=== PATIENT | male | born 1960 | race Caucasian/White ===

== ENCOUNTER 2017-03-24 16:20 | Inpatient (IN) ==
[~2017-03-24 16:20] MED LIST: LIDOCAINE 1%/EPI INJ 20 ML VIAL ONE
[2017-03-24] MEDS ORDERED: ceFAZolin 1,000 MG VIAL ONE (16:46)
--- NOTE | 2017-03-24 16:50 | EKG Report ---
Stationary ECG Study [facility] Test Date: 03/24/2017 4:48:35 PM Pat Name: AYANA COLINDRES Department: Room: 610 Gender: M Operater: [place] : 1960 Requested by: Rashi Goodwin Order Number: [id number] Reading MD: GERMAN LARA Intervals Equality Rate: 69 P: 64 NH: 227 QRS: 116 QRSD: 111 T: 93 QT: 424 QTc: 442 Interpretive Statements SINUS RHYTHM WITH PROLONGED NH INTERVAL MARKED RIGHT AXIS DEVIATION MODERATE INTRAVENTRICULAR CONDUCTION DELAY Electronically Signed On 03-24-17 20:11:29 CDT by GERMAN LARA [email or web address]
[2017-03-24] MEDS ORDERED: SODIUM CHLORIDE 0.9% 250 ML IV SCH (17:00)
[2017-03-24 17:01] LABS: Hematocrit 34.9 VOL% (42.0-52.0); Hemoglobin 12.5 GM/DL (14.0-18.0)
--- NOTE | 2017-03-24 17:59 | History and Physical Update ---
History and Physical Update - History and Physical H&P was reviewed, the patient examined and there: are no changes in the patients condition since last H&P was completed. - Dictation Physical: refer to scanned H&P
--- NOTE | 2017-03-24 18:40 | Operative Note ---
Date of procedure: 03/24/17 Pre-op diagnosis: Multiple soft tissue abscesses Post-op diagnosis: same Procedure: Preoperative diagnosis 1. Left upper abdominal wall necrotizing soft tissue infection with abscess 2. Left axillary abscess 3. Right scalp abscess Postoperative diagnosis Same Procedure performed 1. Incision and drainage of left upper abdominal wall abscess 2. Excisional debridement of necrotic skin and subcutaneous tissue of the left upper abdominal wall measuring 32 cm, wound measuring 8 x 4 cm after debridement 3. Incision and drainage of left axillary abscess 4. Incision and drainage of right scalp abscess Findings Necrotizing soft tissue infection was present with abscess formation of the left upper abdominal wall. Incision and drainage was performed and cultures were sent. The necrotic tissue was debrided with scissors and a total of 32 cm of necrotic skin and subcutaneous tissue were debrided and the postop wound measured 8 x 4 cm. The same purulent drainage was obtained from the left axilla and right scalp. Complications None apparent Specimen Cultures Anesthesia General LMA Blood loss Minimal Indications Multiple soft tissue abscesses Description of procedure The patient was taken to the operating room and transferred to the operating table in the supine position. Pressure points were padded and SCDs were placed to bilateral lower extremities. General laryngeal mask anesthesia was administered. Left upper abdominal wall, left axilla, and right scalp were prepped with Betadine and draped sterilely. Preoperative antibiotics were administered and timeout performed. The left upper abdominal abscess was drained a large amount of pus was obtained. Cultures were sent to the lab from this. An excisional debridement was then performed of the necrotic skin and subcutaneous tissue with scalpel and scissors measuring 8 x 4 cm for a total excisional debridement of 32 cm. The wound was irrigated and packed with a wet -to-dry gauze dressing and covered with ABD and tape. Left axillary abscess was then drained with routine incision and drainage and there is no necrotic tissue present. Purulent drainage was obtained and the wound was irrigated and packed with iodoform packing gauze covered with gauze and tape. The right scalp abscess was then drained in a similar fashion with the same drainage quality. This was packed with out a form packing gauze after was irrigated and covered with gauze and tape. Patient was awakened from anesthesia and transferred to recovery. Postoperative plan Continue antibiotics and wound care Consult nephrology for inpatient dialysis Anesthesia: PATT Surgeon / Physician: Rashi Goodwin Estimated blood loss: minimal Specimens: other (cultures) Condition: stable Disposition: PACU Results - Labs CBC & BMP: 03/24/17 16:50 03/24/17 16:50 Discharge Plan - Discharge Medications No Action Levothyroxine Tab [Synthroid Tab] 137 mcg PO DAILY@0700 Glimepiride [Amaryl] 2 tablet PO BID Aspirin [Ecotrin] 81 mg PO DAILY Amiodarone HCl [Amiodarone HCl] 1 tablet PO DAILY - Follow Up or Referral - Forms/Instructions
--- NOTE | 2017-03-24 18:50 | Anesthesia Post-Op ---
Anesthesia Post OP - Post Ansesthetic Evaluation Patient seen in post op: Yes
[2017-03-24] MEDS ORDERED: SEVOFLURANE 1 UNIT/15 MINUTE INH ONE (18:54)
[2017-03-24] MEDS ORDERED: ePHEDrine 50 MG/ML AMP ONE (18:55)
[2017-03-24] MEDS ORDERED: fentaNYL 100 MCG/2 ML VIAL ONE (18:55)
[2017-03-24] MEDS ORDERED: MIDAZOLAM 2 MG/2 ML VIAL ONE (18:56)
[2017-03-24] MEDS ORDERED: DEXTROSE 50% 25 GM/50 ML SYRINGE IV PRN (19:29)
[2017-03-24] MEDS ORDERED: ONDANSETRON 4 MG/2 ML VIAL IV PRN (19:29)
[2017-03-24] MEDS ORDERED: HYDROmorphone 2 MG/1 ML VIAL IV PRN (19:29)
[2017-03-24] MEDS ORDERED: GLUCAGON 1 MG VIAL IM PRN (19:29)
[2017-03-24] MEDS ORDERED: PROMETHAZINE 25 MG/1 ML VIAL IM PRN (19:29)
[2017-03-24] MEDS: INSULIN REGULAR 100 UNIT/ML SUBCUT SCH (20:59)
[2017-03-24] MEDS: GLIMEPIRIDE 4 MG TABLET PO SCH (20:59)
[2017-03-25] MEDS: CLINDAMYCIN INJ 900 MG in PREMIX 1 EACH IV SCH ×2 (00:28→09:24)
[2017-03-25] MEDS ORDERED: LEVOTHYROXINE 137 MCG TABLET PO SCH (07:00)
[2017-03-25] MEDS ORDERED: ASPIRIN EC 81 MG TABLET PO SCH (09:00)
[2017-03-25] MEDS ORDERED: PANTOPRAZOLE 40 MG TABLET PO SCH (09:00)
[2017-03-25] MEDS ORDERED: AMIODARONE 200 MG TABLET PO SCH (09:00)
[2017-03-25] MEDS: GLIMEPIRIDE 4 MG TABLET PO SCH (09:21)
[2017-03-25] MEDS: INSULIN REGULAR 100 UNIT/ML SUBCUT SCH ×3 (09:29→19:39)
--- NOTE | 2017-03-25 11:44 | Discharge Summary ---
Hospital Course - Hospital Course Hospital Course: 56-year-old white male with history of diabetes, hypertension, and chronic renal failure seen in clinic by Dr. Goodwin with multiple abscesses on his scalp, abdomen, and axilla that were present for 2 weeks. He was admitted on 2016 and taken to the operating room for I&D of left upper abdominal wall abscess, debridement of necrotic skin and subcu tissue of the left upper abdominal wall abscess, I&D of left axillary abscess, and I&D of right scalp abscess. Patient's wounds look ok. His abdominal wound has some slough but hope this will improve with Dakin's. He is afebrile and his white count is normal. Early cultures are growing gram-positive cocci. Patient will be discharged home on clindamycin with a follow-up with Dr. Goodwin in 1 week. Complete discharge instructions were given. Care coordination, chart review, and completed discharge paperwork took approximately 33 minutes. - Time spent with patient Time with patient DS: Greater than 30 minutes Specialty Discharge - Follow Up or Referrals Follow up with: Rashi Goodwin MD [Physician] - 03/30/17 2:00 pm Discharge Plan - Discharge Data Disposition: Disch To Home/Self Care Condition at Discharge: Stable Discharge Diet: diabetic diet Activity: resume usual activities as tolerated Hygiene: may shower Driving: other (No driving if taking pain medications) Contact your physician if you experience:: fever over 101, Redness or swelling Wound / Dressing Care Instructions: Shower all wounds daily with Hibiclens and rinse with water thoroughly, repack all wounds with Dakin's moistened gauze, cover with dry gauze, and paper tape - Discharge Medications New Clindamycin HCl [Clindamycin Cap] 300 mg PO QID #28 capsule HYDROcodone/ACETAMIN 7.5-325 [[place] 7.5-325] 1 tablet PO Q4H PRN #30 tablet PRN Reason: Pain Moderate (4-7) Continue Levothyroxine Tab [Synthroid Tab] 137 mcg PO DAILY@0700 Glimepiride [Amaryl] 2 tablet PO BID Aspirin [Ecotrin] 81 mg PO DAILY Amiodarone HCl 1 tablet PO DAILY - Follow Up or Referral Follow Up: Rashi Goodwin MD [Physician] - 03/30/17 2:00 pm - Forms/Instructions Exam - Constitutional Vitals: Period Temp Pulse Resp BP Sys/Quinones Pulse Ox Last 24 Hr 97 F-99.4 F 59-70 16-20 105-142/48-78 90-100 Discharge Results Procedures and tests throughout hospitalization: Pending Orders 03/24/17 Abscess Culture Routine Anaerobic Culture Routine Labs on day of discharge: Labs from last 24 hours 03/25/17 03/25/17 03/24/17 10:45 06:42 21:43 Hgb Hct Potassium POC Glucose 202 H 142 H 140 H 03/24/17 03/24/17 03/24/17 18:31 16:51 16:50 Hgb Hct Potassium 4.8 POC Glucose 104 102 03/24/17 16:50 Hgb 12.5 L Hct 34.9 L Potassium POC Glucose Preliminary micro results at discharge 03/24/17 Unknown Abscess Culture - Preliminary Abdomen - Abscess Gram Positive Cocci DS: Provider Date of admission: 03/24/17 Attending physician on admission: dominick Consults: 03/24/17 19:29 Consult to Physician [CONS] Routine Comment: Consulting Provider: Gordon Sanderson When should Consulting Provider be notified: Now Person Notified: adriana wilkinson Date Notified: 03/25/17 Time Notified: 08:43 Discharging clinician: DIAZ White Expected date of discharge: 03/25/17
[2017-03-25] MEDS ORDERED: CHLORHEXIDINE 4% SOLN 118 ML BOTTLE TOP SCH (12:30)
[2017-03-25] MEDS ORDERED: SODIUM HYPOCHLORITE 0.25% IRRIG 473 ML BOTTLE TOP SCH (12:30)
[2017-03-25 19:29] VITALS: BP 150/81
--- NOTE | 2017-03-25 21:42 | Nephrology Consult Note ---
History of Present Illness Chief complaint: ESRD History of present illness: Mr. Martin is a 56 year old male with ESRD secondary to diabetes. He was seen at the dialysis unit yesterday at which time he complained of pain in his left side. Examination revealed a large indurated area involving the left upper abdomen. He was referred to Dr. Goodwin and taken to surgery for drainage of this abscess as well as one in the left axilla and a smaller one on his scalp. He tolerated the procedure without complications. Home Medications Medication Instructions Recorded Confirmed Type Amiodarone HCl 1 tablet PO DAILY 12/19/15 03/24/17 History Aspirin [Ecotrin] 81 mg PO DAILY 12/19/15 03/24/17 History Glimepiride [Amaryl] 2 tablet PO BID 12/19/15 03/24/17 History Levothyroxine Tab [Synthroid Tab] 137 mcg PO DAILY@0700 12/19/15 03/24/17 History Clindamycin HCl [Clindamycin Cap] 300 mg PO QID #28 capsule 03/25/17 Rx HYDROcodone/ACETAMIN 7.5-325 1 tablet PO Q4H PRN #30 tablet 03/25/17 Rx [[place] 7.5-325] Allergies Allergy/AdvReac Type Severity Reaction Status Date / Time No Known Allergies Allergy Verified 03/24/17 16:38 Medical,Surgical,& Family Hx - Medical History Cardio: History of: Cardiac Dysrhythmia (AFIB), Hypertension Neurology: No history of: Seizures Endocrine: History of: Diabetes Mellitus (NIDDM), Thyroid Disorder ( hypothyroidism) Renal: History of: Dialysis ([id number]), Renal Failure Musculoskeletal: History of: Musculoskeletal Problems (arthritis of knees) - Social History Smoking Status: Never smoker Frequency of Alcohol Use: None Type of Drug Use: None Review of Systems 12 point system: reviewed and no additional remarkable complaints except as stated Exam - Vital Signs Vital signs: Period Temp Pulse Resp BP Sys/Quinones Pulse Ox Last 24 Hr 97.1 F-98.0 F 59-69 16-20 105-150/48-81 90-100 Exam: Gen.: Alert and oriented x3. ENT: Pupils equal round reactive to light. EOMs intact. Mucous membranes moist. Neck: Supple. No JVD or bruit. Cardiovascular: Regular rate and rhythm. No murmur rub or gallop Lungs: Clear Abdomen: Soft. Surgical dressing over left upper quadrant wound. Extremities: No edema Results - Labs CBC & BMP: 03/24/17 16:50 03/24/17 16:50 Assessment and Plan (1) ESRD (end stage renal disease) Status: Acute Assessment and plan: 56-year-old man admitted with: * ESRD. He dialyzed yesterday. Volume status is normal. Plan dialysis tomorrow * Abdominal wall abscess. Status post incision and drainage. Continue current antibiotics. Cultures pending * Left axillary abscess * Diabetes mellitus (2) Abdominal wall abscess Status: Acute (3) Abscess of left axilla Status: Acute (4) Diabetes mellitus Status: Acute Specialty Discharge - Follow Up or Referrals Follow up with: Rashi Goodwin MD [Physician] - 03/30/17 2:00 pm
== END 2017-03-25 19:05 | disposition home health service (06) | DRG 570 ==
LOC: N.OR 16:20 → N.SDSINP 16:28 → N.3E 18:18
PROVIDERS: ADMIT Surgery; ATTEND Surgery

== ENCOUNTER 2017-04-01 06:28 | Inpatient (IN) ==
[2017-04-01] MEDS ORDERED: ACETAMINOPHEN 325 MG TABLET PO PRN (07:33)
[2017-04-01] MEDS ORDERED: ONDANSETRON 4 MG/2 ML VIAL IV PRN (07:33)
[2017-04-01] MEDS ORDERED: GLUCAGON 1 MG VIAL IM PRN (07:33)
[2017-04-01] MEDS ORDERED: DEXTROSE 50% 25 GM/50 ML SYRINGE IV PRN (07:33)
[2017-04-01] MEDS: INSULIN REGULAR 100 UNIT/ML SUBCUT SCH ×4 (07:54→22:11)
[2017-04-01 08:52] LABS: Basophils % 0.4 % (0.0-0.8); Eosinophils # 0.4 10*3/uL (0.0-0.87); Eosinophils % 3.6 % (0.00-10.9); Hematocrit 35.9 VOL% (42.0-52.0); Hemoglobin 12.3 GM/DL (14.0-18.0); Immature Granulocytes % 0.7 %; Immature Granulocytes Absolute 0.07 #; Lymphocytes # 0.5 10*3/uL (1.4-4.0); Lymphocytes % 4.8 % (21.2-54.2); Mean Corpuscular HGB Conc 34.3 GM/DL (32-36); Mean Corpuscular Hemoglobin 29 PG (27-34); Mean Corpuscular Volume 85.1 FL (87-102); Monocytes # 0.7 10*3/uL (0.11-0.8); Monocytes % 6.5 % (1.7-12.7); Neutrophils # 8.7 10*3/uL (1.4-7.4); Platelet Count 267 T/CUMM (130-400); Red Blood Count 4.22 MC/CUMM (3.8-5.5); Red Cell Distribution Width 16.1 % (9.3-17.3); White Blood Count 10.3 T/CUMM (4-12)
--- NOTE | 2017-04-01 08:57 | General Surg History&Physical ---
Assessment and Plan (1) Peripheral arterial disease Status: Acute Assessment and plan: This patient definitely has peripheral arterial disease based on his vascular exam. He has palpable pulses in his bilateral femoral arteries but no palpable pulse in his popliteal or pedal arteries. There is Doppler signal down into the foot but I am concerned about the severity of his underlying vascular disease. As mentioned in the history of present illness on this note, I have recommended a vascular workup to the patient so that we can look at options of revascularization given his evidence of peripheral arterial disease and the significance of it. I believe there is a real risk of amputation in the near future if revascularization is not achieved. The patient is adamant that he does not want to have this done. He is not willing to undergo the CT angiogram , noninvasive studies, or any sort of intervention to improve blood flow to his foot. He feels certain that his circulation problems are not bad enough to warrant any of these interventions and thinks that the only reason he is having any problems right now is because of the SCDs that were placed overnight last week. I tried to explain to the patient at length that although the SCDs may have made some symptoms more noticeable, that the SCDs themselves did not cause the chronic changes that we are facing right now and in this light I tried to demonstrate to him the benefit of revascularization in his situation. The patient seems to understand this but he disagrees with me about what is going on and is refusing this treatment. He does have cellulitis but it looks fairly minimal and most of his redness I think is dependent rubor. We will treat him with empiric antibiotics using vancomycin and Zosyn and dose these renally and monitor the cellulitis with wound care to the lower extremities in the meantime. Current Visit: Yes (2) Abdominal wall abscess Status: Acute Assessment and plan: We will continue local wound care to the abscesses that were drained last week. They are all healing well. Current Visit: No History of Present Illness Chief complaint: Bilateral lower extremity swelling History of present illness: Mr. Martin is a 56 year old male who recently had an incision and drainage of multiple abscesses in the soft tissues of the left upper abdomen, left axilla, and right scalp region. I saw him in clinic on Tuesday of this week and he was complaining of some cramping pain in his legs since he left the hospital last week and some swelling. Initially when I saw him there is a lot of dependent rubor and it looked like chronic vascular disease changes but I did not examine his legs at a prior visit and I felt like it would be better to admit him to the hospital for IV antibiotics and monitor for resolution of cellulitis that looks like it has developed on top of his dependent rubor. He does have some wounds on his legs that appear chronic to me. When I called him on Tuesday night to recommend a direct admission the patient refused stating that he had too much to do at home to come in that night. He said he was willing to come in this morning for IV antibiotics and I put in some orders to admit him to the hospital. I have discussed the issue of the patient's underlying peripheral arterial disease based on his pulse exam. He seems convinced that this was all caused by the SCD pumps that he wore overnight in the hospital last week but I tried to explain to him that although the SCDs could have caused some new symptoms that he had not noticed before, he does have severe peripheral arterial disease with diminished pulses and changes in his foot of chronic vascular insufficiency. I have discussed this with the patient and offered to work this up to prevent progression of disease and major amputation in the future. The patient refused to have any of these workups done. I spent a prolonged amount of time in the room discussing this with the patient and tried to tell him that although I agree that he may have noticed new symptoms after the SCD pumps were placed, that he does indeed have severe underlying peripheral arterial disease and that we could potentially help him was attempts at revascularization. I explained to the patient the risk of amputation without revascularization and he is adamant that he does not want to have anything done. He seems to understand the possible outcomes and I think he is demonstrating capacity to make decisions of informed consent an informed refusal. We will do the best that we can that he will allow us to do which will include IV antibiotics and wound care on his legs and also on his abscess drainage sites on the left abdomen, left axilla, and right scalp. Home Medications Medication Instructions Recorded Confirmed Type Amiodarone HCl 1 tablet PO DAILY 12/19/15 03/24/17 History Aspirin [Ecotrin] 81 mg PO DAILY 12/19/15 03/24/17 History Glimepiride [Amaryl] 2 tablet PO BID 12/19/15 03/24/17 History Levothyroxine Tab [Synthroid Tab] 137 mcg PO DAILY@0700 12/19/15 03/24/17 History Clindamycin HCl [Clindamycin Cap] 300 mg PO QID #28 capsule 03/25/17 Rx HYDROcodone/ACETAMIN 7.5-325 1 tablet PO Q4H PRN #30 tablet 03/25/17 Rx [[place] 7.5-325] Allergies Allergy/AdvReac Type Severity Reaction Status Date / Time No Known Allergies Allergy Verified 03/24/17 16:38 Medical,Surgical,& Family Hx - Medical History Cardio: History of: Cardiac Dysrhythmia (AFIB), Hypertension Neurology: No history of: Seizures Endocrine: History of: Diabetes Mellitus (NIDDM), Thyroid Disorder ( hypothyroidism) Renal: History of: Dialysis ([id number]), Renal Failure Musculoskeletal: History of: Musculoskeletal Problems (arthritis of knees) - Surgical History HEENT Surgeries: Surgical HX of: Eye Surgery (Theodore Cataracts and Retina surgery) , Tonsilectomy & Adenoidectomy - Family History Family History: Reports;: Family Cancer (Mother), Family Diabetes (Father), Family Hypertension (Father) - Social History Smoking Status: Never smoker Frequency of Alcohol Use: None Type of Drug Use: None Exam - Constitutional Vitals: Period Temp Pulse Resp BP Sys/Quinones Pulse Ox Last 24 Hr 97.6 F 65 18 129/65 98 General appearance: no acute distress, over weight - Head Head exam: Present: normal inspection, normocephalic - Eye Eye exam: Present: EOMI. Absent: scleral icterus Pupils: Present: [place] - ENT ENT exam: Present: normal exam Mouth exam: Present: normal external inspection, normal voice - Neck Neck exam: Present: normal inspection, trachea midline - Respiratory Respiratory exam: Present: clear to auscultation bilaterally. Absent: accessory muscle use, chest wall tenderness - Cardiovascular Cardiovascular exam: Present: RRR. Absent: systolic murmur, tachycardia - GI/Abdominal GI/Abdominal exam: Present: soft. Absent: tenderness, rebound - Extremities Exam Extremities exam: Present: other (There are changes of chronic peripheral arterial disease in the bilateral lower extremities. He has shiny hairless feet with dependent rubor present but there is also some erythema around some of the wounds on his left leg and he does have edema of the bilateral lower extremities as well. The leg is not warm to the touch. There is no drainage or foul odor from the wounds. There is a chronic appearing eschar on the left medial lower leg that does not appear infected. This has chronic features and does not appear to be caused by SCD pumps a week ago.) - Back Exam Back exam: Present: normal inspection - Neurological Exam Neurological exam: Present: alert, oriented X3 Speech: Present: normal - Skin Skin exam: Present: normal color, other (The abscess cavity in the left upper abdomen, left axilla, and right scalp appear clean and healing well. No surrounding erythema or drainage.) - Constitutional Constitutional: Present: as per HPI - EENT Nose, mouth and throat: Present: as per HPI - Cardiovascular Cardiovascular: Present: as per HPI - Respiratory Respiratory: Present: as per HPI - Gastrointestinal Gastrointestinal: Present: as per HPI - Genitourinary Genitourinary: Present: as per HPI - Musculoskeletal Musculoskeletal: Present: as per HPI - Neurological Neurological: Present: as per HPI - Endocrine Endocrine: Present: as per HPI Hematologic/Lymphatic: Present: as per HPI Quality Measures - VTE Contraindication to Pharmacological VTE Prophylaxis: High Risk of Bleeding Contraindication to Mechanical VTE Prophylaxis: Ischemic Vascular Disease Results - Labs CBC & BMP: 04/01/17 08:25
[2017-04-01 09:18] LABS: Calcium 8.7 MG/DL (8.5-10.1); Osmolality,Calculated 273.2 MOS/KG (273-304); Potassium 4.8 MMOL/L (3.5-5.1)
[2017-04-01 09:35] LABS: Eosinophils 2 % (0-10); Giant Platelets Few; Hypochromasia 1+; Lymphocytes 1 % (20-55); Platelet Estimate Adequate; Segmented Neutrophils 88 % (50-85); Total Cells Counted 100
[2017-04-01] MEDS: LEVOTHYROXINE 137 MCG TABLET PO SCH (09:39)
[2017-04-01] MEDS: AMIODARONE 200 MG TABLET PO SCH (09:39)
[2017-04-01] MEDS: SODIUM HYPOCHLORITE 0.25% IRRIG 473 ML BOTTLE TOP SCH ×2 (09:39→22:11)
[2017-04-01] MEDS: ASPIRIN EC 81 MG TABLET PO SCH (09:39)
[2017-04-01] MEDS: PANTOPRAZOLE 40 MG TABLET PO SCH (09:39)
[2017-04-01] MEDS ORDERED: VANCOMYCIN INJ 1,500 MG in SODIUM CHLORIDE 0.9% 500 ML IV ONE (11:30)
--- NOTE | 2017-04-01 11:38 | Nephrology Consult Note ---
History of Present Illness Chief complaint: ESRD History of present illness: Mr. Martin is a 56 year old male admitted for peripheral vascular disease and cellulitis of the lower extremities. He has long-standing diabetes and peripheral neuropathy. He was recently hospitalized with abdominal wall abscesses. He has been afebrile. He has ESRD secondary to diabetes. He last dialyzed yesterday. He has asked to have his dry weight decreased Home Medications Medication Instructions Recorded Confirmed Type Amiodarone HCl 1 tablet PO DAILY 12/19/15 04/01/17 History Aspirin [Ecotrin] 81 mg PO DAILY 12/19/15 04/01/17 History Glimepiride [Amaryl] 2 tablet PO BID 12/19/15 04/01/17 History Levothyroxine Tab [Synthroid Tab] 137 mcg PO DAILY@0700 12/19/15 04/01/17 History Clindamycin HCl [Clindamycin Cap] 300 mg PO QID #28 capsule 03/25/17 04/01/17 Rx HYDROcodone/ACETAMIN 7.5-325 1 tablet PO Q4H PRN #30 tablet 03/25/17 04/01/17 Rx [[place] 7.5-325] Allergies Allergy/AdvReac Type Severity Reaction Status Date / Time No Known Allergies Allergy Verified 03/24/17 16:38 Medical,Surgical,& Family Hx - Medical History Cardio: History of: Cardiac Dysrhythmia (AFIB), Hypertension Neurology: No history of: Seizures Endocrine: History of: Diabetes Mellitus (NIDDM), Thyroid Disorder ( hypothyroidism) Renal: History of: Dialysis ([facility]), Renal Failure Musculoskeletal: History of: Musculoskeletal Problems (arthritis of knees) - Surgical History HEENT Surgeries: Surgical HX of: Eye Surgery (Theodore Cataracts and Retina surgery) , Tonsilectomy & Adenoidectomy - Family History Family History: Reports;: Family Cancer (Mother), Family Diabetes (Father), Family Hypertension (Father) - Social History Smoking Status: Never smoker Frequency of Alcohol Use: None Type of Drug Use: None Review of Systems 12 point system: reviewed and no additional remarkable complaints except as stated Exam - Vital Signs Vital signs: Period Temp Pulse Resp BP Sys/Quinones Pulse Ox Last 24 Hr 97.6 F 65 18 129/65 98 Exam: Gen.: Alert and oriented x3. ENT: Pupils equal round reactive to light. EOMs intact. Mucous membranes moist. Neck: Supple. No JVD or bruit. Cardiovascular: Regular rate and rhythm. No murmur rub or gallop Lungs: Clear. Abdomen: Soft. Nontender. Left abdominal wall has surgical dressing applied Extremities: 1+ edema. Chronic skin changes consistent with PAD Results - Labs CBC & BMP: 04/01/17 08:25 04/01/17 08:25 Assessment and Plan (1) ESRD (end stage renal disease) Status: Acute Assessment and plan: 56-year-old man with: * ESRD. Dialysis TTS. Dry weight will be decreased to 91 kg * peripheral artery disease. He has declined arteriogram. * Cellulitis, lower extremities. These wounds appear chronic. Vancomycin dose will be adjusted for renal failure * Diabetes mellitus Current Visit: No (2) Peripheral arterial disease Status: Acute Current Visit: Yes (3) Abdominal wall abscess Status: Acute Current Visit: No (4) Abscess of left axilla Status: Acute Current Visit: No (5) Diabetes mellitus Status: Acute Current Visit: No
[2017-04-01] MEDS: PIPERACILLIN/TAZOBACTAM 3,375 MG in SODIUM CHLORIDE 0.9% 100 ML IV SCH (17:54)
[2017-04-02] MEDS: PIPERACILLIN/TAZOBACTAM 3,375 MG in SODIUM CHLORIDE 0.9% 100 ML IV SCH ×2 (04:22→17:38)
[2017-04-02] MEDS: SODIUM HYPOCHLORITE 0.25% IRRIG 473 ML BOTTLE TOP SCH ×3 (04:24→21:26)
[2017-04-02] MEDS: LEVOTHYROXINE 137 MCG TABLET PO SCH (06:50)
[2017-04-02] MEDS ORDERED: VANCOMYCIN INJ 1,250 MG in SODIUM CHLORIDE 0.9% 250 ML IV PRN (06:51)
[2017-04-02] MEDS: INSULIN REGULAR 100 UNIT/ML SUBCUT SCH ×4 (08:01→21:26)
--- NOTE | 2017-04-02 09:22 | General Surgery Progress Note ---
Assessment and Plan - Time spent with patient Time spent with patient: Less than 30 minutes (1) Peripheral arterial disease Status: Acute Assessment and plan: The patient has explained that he will be leaving in the morning because he has personal things that he needs to take care of. He is getting IV antibiotics for lower extremity cellulitis. This appears to be a component of ischemia as well. The patient is not planning to stay for any vascular workup. Apparently he refused the noninvasive vascular studies yesterday according to the nurses. I had a long discussion with the patient explaining that he probably has an underlying problem that is causing the changes in his lower extremity. He says he does not believe this and feels that it is all related to sequential compression devices placed on his legs before. I explained that whether the sequential compression devices had anything to do with it or not he still probably needs a vascular evaluation. He is agreed to follow-up as an outpatient but says that he will be leaving in the morning. We will make sure that nephrology arranges for him to continue to get antibiotics as an outpatient. Current Visit: Yes Subjective Patient reports: Present: feels better. Absent: still having pain, fever Exam - Constitutional Vitals: Period Temp Pulse Resp BP Sys/Quinones Pulse Ox Last 24 Hr 96.5 F-97.4 F 56-68 18-18 123-150/73-94 96-100 General appearance: no acute distress - Eye Eye exam: Absent: scleral icterus - Respiratory Respiratory exam: Absent: accessory muscle use - Extremities Exam Extremities exam: Present: other (He has clean eschars on his left lower extremity without evidence of purulence or active infection. There is diffuse erythema of his lower extremities from the mid calf to the ankle. It is nontender.). Absent: edema Results - Labs CBC & BMP: 04/01/17 08:25 04/01/17 08:25 Lab Results: I have reviewed the past 24 hour labs Quality Measures - VTE Contraindication to Pharmacological VTE Prophylaxis: High Risk of Bleeding Contraindication to Mechanical VTE Prophylaxis: Ischemic Vascular Disease
--- NOTE | 2017-04-02 11:47 | Nephrology Progress Note ---
Nephrology - PN: Subj Interval history: Patient denies shortness of breath. Review of systems GI denies nausea or vomiting Assessment/plan 1. End-stage renal disease-we will plan on hemodialysis today 2. Diabetes mellitus 3. Peripheral vascular disease 4. Anemia-patient's hematocrits around 35% Exam (PN)-Nephrology - Vital Signs Vital signs: Period Temp Pulse Resp BP Sys/Quinones Pulse Ox Last 24 Hr 96.5 F-97.2 F 56-68 18-18 123-147/73-80 96-100 - Lab 04/01/17 08:25 04/01/17 08:25 Most recent lab results Calcium 8.7 MG/DL (8.5-10.1) 04/01/17 08:25
--- NOTE | 2017-04-02 14:37 | Dialysis Note ---
Dialysis Note - Dialysis Note Patient seen on hemodialysis, he is tolerating this well will continue his treatment unchanged, his UF goal is 3 KGs, his systolic blood pressures around 160.
[2017-04-02] MEDS: ASPIRIN EC 81 MG TABLET PO SCH (17:35)
[2017-04-02] MEDS: AMIODARONE 200 MG TABLET PO SCH (17:36)
[2017-04-02] MEDS: PANTOPRAZOLE 40 MG TABLET PO SCH (17:36)
[2017-04-03] MEDS: PIPERACILLIN/TAZOBACTAM 3,375 MG in SODIUM CHLORIDE 0.9% 100 ML IV SCH (04:35)
[2017-04-03] MEDS: LEVOTHYROXINE 137 MCG TABLET PO SCH (06:04)
[2017-04-03] MEDS: INSULIN REGULAR 100 UNIT/ML SUBCUT SCH ×2 (07:55→12:57)
[2017-04-03] MEDS: PANTOPRAZOLE 40 MG TABLET PO SCH (10:04)
[2017-04-03] MEDS: AMIODARONE 200 MG TABLET PO SCH (10:04)
[2017-04-03] MEDS: ASPIRIN EC 81 MG TABLET PO SCH (10:04)
[2017-04-03] MEDS: SODIUM HYPOCHLORITE 0.25% IRRIG 473 ML BOTTLE TOP SCH (10:05)
--- NOTE | 2017-04-03 10:31 | General Surgery Progress Note ---
Assessment and Plan (1) Peripheral arterial disease Status: Acute Assessment and plan: The patient has explained that he will be leaving in the morning because he has personal things that he needs to take care of. He is getting IV antibiotics for lower extremity cellulitis. This appears to be a component of ischemia as well. The patient is not planning to stay for any vascular workup. Apparently he refused the noninvasive vascular studies yesterday according to the nurses. I had a long discussion with the patient explaining that he probably has an underlying problem that is causing the changes in his lower extremity. He says he does not believe this and feels that it is all related to sequential compression devices placed on his legs before. I explained that whether the sequential compression devices had anything to do with it or not he still probably needs a vascular evaluation. He is agreed to follow-up as an outpatient but says that he will be leaving in the morning. We will make sure that nephrology arranges for him to continue to get antibiotics as an outpatient. 04/03: The patient denies pain and wants to go home today. He states that he is leaving no matter what. He is not wanting to stay for a peripheral vascular disease evaluation. He appears to have responded to antibiotics and he can continue to get this on dialysis. We can have him follow-up with Dr. Dawkins in our office. Current Visit: Yes Subjective Patient reports: Present: feels better. Absent: still having pain, fever Exam - Constitutional Vitals: Period Temp Pulse Resp BP Sys/Quinones Pulse Ox Last 24 Hr 97.4 F-98.1 F 57-73 18-20 124-161/62-86 92-97 General appearance: no acute distress - Head Head exam: Present: normocephalic - Eye Eye exam: Absent: scleral icterus - Respiratory Respiratory exam: Absent: accessory muscle use - Extremities Exam Extremities exam: Present: other (He has less erythema). Absent: calf tenderness, edema Results - Labs CBC & BMP: 04/01/17 08:25 04/01/17 08:25 Quality Measures - VTE Contraindication to Pharmacological VTE Prophylaxis: High Risk of Bleeding Contraindication to Mechanical VTE Prophylaxis: Ischemic Vascular Disease
--- NOTE | 2017-04-03 10:33 | Discharge Summary ---
Hospital Course - Hospital Course Hospital Course: The patient was admitted with cellulitis and peripheral vascular disease. The patient refused workup for his peripheral vascular disease including noninvasive vascular studies. He insisted on going home before this could be completed. His cellulitis was treated with antibiotics and it appeared to be responding to antibiotics. The patient needs to go home today and agrees that he is willing to follow-up in our office. - Time spent with patient Time with patient DS: Less than 30 minutes Diagnosis - Discharge Diagnosis (1) Peripheral arterial disease Status: Acute Discharge Plan - Discharge Data Disposition: Disch To Home/Self Care Discharge Diet: advance to your usual diet Activity: resume usual activities as tolerated - Discharge Medications No Action Levothyroxine Tab [Synthroid Tab] 137 mcg PO DAILY@0700 Glimepiride [Amaryl] 2 tablet PO BID Aspirin [Ecotrin] 81 mg PO DAILY Amiodarone HCl 1 tablet PO DAILY Clindamycin HCl [Clindamycin Cap] 300 mg PO QID #28 capsule HYDROcodone/ACETAMIN 7.5-325 [[place]erson 7.5-325] 1 tablet PO Q4H PRN #30 tablet PRN Reason: Pain Moderate (4-7) - Follow Up or Referral Follow Up: Rashi Goodwin MD [Physician] - 1 Week - Forms/Instructions Additional Discharge Instructions: Arrange for him to continue IV antibiotics on dialysis Exam - Constitutional Vitals: Period Temp Pulse Resp BP Sys/Quinones Pulse Ox Last 24 Hr 97.4 F-98.1 F 57-73 18-20 124-161/62-86 92-97 Discharge Results Labs on day of discharge: Labs from last 24 hours 04/03/17 04/02/17 07:23 17:28 POC Glucose 141 H 162 H DS: Provider Date of admission: 04/01/17 06:28 Primary care physician: . No PCP Attending physician on admission: Rashi Goodwin MD Consults: 04/01/17 07:33 Consult to Pharmacy [CONS] Routine Reason for Pharmacy Consult: Dose/Manage Antibiotics Consult to Physician [CONS] Routine Comment: hemodialysis Consulting Provider: Gordon Sanderson Consulting Provider Notified: Yes When should Consulting Provider be notified: Now Person Notified: adriana jaja Date Notified: 04/01/17 Time Notified: 08:35 04/01/17 07:49 Consult to Dietitian [CONS] Routine Reason for Dietitian: Dietary Consult 04/01/17 10:05 Consult to Pharmacy [CONS] Routine Reason for Pharmacy Consult: Dose/Manage Vancomycin Adjust Meds Renal Funct Discharging clinician: Dung Grossman III.,
--- NOTE | 2017-04-03 10:41 | Nephrology Progress Note ---
Nephrology - PN: Subj Interval history: Patient denies shortness of breath. Review of systems GI denies nausea or vomiting Physical exam general patient is in no acute distress Assessment/plan 1. End-stage renal disease-we will continue hemodialysis support 2. Diabetes mellitus-continue his present hypoglycemic regimen 3. Peripheral vascular disease 4. 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 Fax order to [phone]
[2017-04-03 12:32] VITALS: BP 143/82
== END 2017-04-03 12:56 | disposition home health service (06) | DRG 602 ==
LOC: N.3E → OBSVTOIN 06:28 → N.3E 08:29
PROVIDERS: ADMIT Surgery; ATTEND Surgery